=== PATIENT | male | born 1965 | race Caucasian/White ===

== ENCOUNTER 2017-05-11 19:32 | Emergency (ER) | payer OTHER ==
[~2017-05-11] VITALS: Ht 175.3 cm; Wt 80.0 kg
[2017-05-11] VITALS (7 sets, daily range): BP systolic 146–165; BP diastolic 91–100; PULSE 86–105; RESP 11–22; O2SAT 97–99
[~2017-05-11 19:32] MED LIST: LEVA15HF4 IH; PROZ20 PO
[2017-05-11 20:40] LABS: BASOPHILS % (AUTO) 0.2 % (0-3); EOSINOPHILS % (AUTO) 0.4 % (0-5); MONOCYTES % (AUTO) 7.8 % (4-12); Mean Corpuscular Hemoglobin 30.9 pg (27.0-35.0); Mean Corpuscular Volume 87.6 fL (81-100); NEUTROPHILS % (AUTO) 71.7 % (40-74); Platelet Count 454 bil/L (150-400)
--- NOTE | 2017-05-11 20:49 | ED.REPORT ---
HPI-General Illness Date of Service May 11, 2017 ED Provider: Buddy Le MD Patient is a 53 year old male presents to the ED following an episode of nonvertiginous dizziness that occurred earlier this afternoon. 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 Associated symptoms include dizziness, headache and grief/resolved confusion. The patient's daughter became concerned after he began to experience disorientation. Patient is currently complaining of fatigue and states he feels much better after receiving some IV fluids. He currently takes amitriptyline. He denies any associated chest pain, SOB, or numbness/tingling. Nursing Notes Stated Complaint: POSSIBLE HEAT STROKE Chief Complaint: General Complaint Nursing Notes Reviewed: Yes Allergies: Coded Allergies: Penicillins (Verified Allergy, Severe, 12/18/09) ondansetron (Verified Allergy, Severe, 12/18/09) azithromycin (Verified Allergy, Intermediate, Hives, 09/01/11) Scheduled FLUoxetine-Expunged Drug, Do not Renew! (Prozac-Expunged Drug, Do not Renew!) 20 Mg Cap 20 MG PO AM Scheduled PRN Levalbuterol (Xopenex HFA) 45 Mcg Puff 15 GM IH Q4 PRN PRN General Time Seen by MD: 20:48 Chief Complaint Dizziness Hx Obtained From: Patient Arrived By: Walk-in Sudden in Onset?: No Onset Occurred: 5 - 8 hours ago Symptom Duration: Since onset Location: : Head Quality: Aching Radiation: : Does not radiate Severity: Current: No pain currently Severity: Maximum: Mild Associated with: Reports: Headache, Weakness Pertinent Negative: Pt denies other symptoms Recent Healthcare: No recent doctor visit, No recent hospitalization Past Medical History Past Medical History None reported. Past Surgical History None reported. Smoking History Never Smoker Social History Alcohol Use: Denies alcohol use Drug Use: THC Other Social History: Good social support, Local resident Ambulatory Status Independent Review of Systems Full Review of Systems Constitutional: Denies: Chills, Fever Respiratory: Denies: Shortness of breath Cardiovascular: Denies: Chest pain Neurologic: Reports: Confusion, Dizziness, Headache, Lightheaded Complete sys rev & neg: except as marked. Physical Exam Vital Signs Vital Signs Date Time Temp Pulse Resp B/P Pulse Ox O2 Delivery O2 Flow Rate FiO2 05/11/17 23:24 91 20 157/94 97 Room Air 05/11/17 21:15 88 11 153/95 98 Room Air 05/11/17 21:00 87 13 153/91 99 Room Air 05/11/17 20:45 86 13 152/100 99 Room Air 05/11/17 20:30 101 17 165/98 99 Room Air 05/11/17 20:15 96 16 165/98 98 Room Air 05/11/17 19:42 36.7 105 22 146/96 97 Room Air Initial VS: Reviewed Neck: Supple, Non-tender, Full range of motion Extremities: Vascular intact, Neuro intact, No swelling, No tenderness Skin: Warm, Dry, No cyanosis Neurologic: Alert, Oriented, Nonfocal Psychiatric: Mood/affect normal, Behavior normal, Normal thought content General/Constitutional: Awake, Alert, No acute distress, Well appearing, Well developed Head / Eyes: Atraumatic, Normocephalic, PERRL ENT: Atraumatic, Airway patent, Pharynx NL Mouth: Positive: Mucous membranes dry Respiratory / Chest: Atraumatic, Breath sounds NL, Breath sounds = bilat, No respiratory distress Cardiovascular: Heart rate NL, Regular rhythm, Heart sounds NL, No gallop, No murmurs, No rubs Abdomen: Atraumatic, Soft, Non-tender Interpretation & Diagnostics Lab Results Interpretation Result Diagram: 05/11/17203405/11/172034 Test 05/11/17 20:35 05/11/17 20:49 05/11/17 21:48 White Blood Count 13.9th/mm3 (3.8-10.1) Red Blood Count 5.25mil/mm3 (4.40-5.80) Hemoglobin 16.2g/dL (13.8-17.2) Hematocrit 46.0% (41.0-50.0) Mean Corpuscular Volume 87.6fL (81-100) Mean Corpuscular Hemoglobin 30.9pg (27.0-35.0) Mean Corpuscular Hemoglobin Concent 35.2% (32.0-37.0) Red Cell Distribution Width 13.3% (12.3-15.4) Platelet Count 454bil/L (150-400) Neutrophils (%) (Auto) 71.7% (40-74) Lymphocytes (%) (Auto) 19.5% (14-46) Monocytes (%) (Auto) 7.8% (4-12) Eosinophils (%) (Auto) 0.4% (0-5) Basophils (%) (Auto) 0.2% (0-3) Sodium Level 136mEq/L (134-144) Potassium Level 5.1mEq/L (3.5-5.2) Chloride Level 97mEq/L (97-108) Carbon Dioxide Level 21mmol/L (18-29) Blood Urea Nitrogen 19mg/dL (6-24) Creatinine 1.13mg/dL (0.76-1.27) Estimat Glomerular Filtration Rate 72mL/min (>59) Glucose Level 113mg/dL (60-99) Calcium Level 11.5mg/dL (8.5-10.1) Magnesium Level 1.8mg/dL (1.6-2.6) Total Bilirubin 0.4mg/dL (0.0-1.2) Aspartate Amino Transf (AST/SGOT) 70U/L (0-50) Alanine Aminotransferase (ALT/SGPT) 62U/L (0-44) Alkaline Phosphatase 70U/L (25-150) Total Protein 8.7g/dL (6.4-8.4) Albumin 4.8g/dL (3.4-5.0) Lipase 22U/L (13-60) Hold Maher Top Tube Received (Received) Urine Color Yellow (YELLOW) Urine Appearance Clear (CLEAR,HAZY) Urine pH 6.0 (5.0-8.0) Urine Specific [place] 1.010 (1.003-1.035) Urine Protein 30mg/dL (NEG,TRACE) Urine Glucose (UA) Negativemg/dL (NEGATIVE) Urine Ketones Negativemg/dL (NEGATIVE) Urine Occult Blood Large (NEGATIVE) Urine Nitrite Negative (NEGATIVE) Urine Bilirubin Negative (NEGATIVE) Urine Urobilinogen Normalmg/dL (NORMAL) Urine Leukocyte Esterase Negative (NEGATIVE) Urine RBC 11-50/hpf (0-2) Urine WBC 0-5/hpf (0-5) Urine Epithelial Cells Occasional/hpf (NONE-MOD) Urine Crystals None seen (NONE SEEN) Urine Bacteria None/hpf (NONE-FEW) Urine Hyaline Casts None/lpf (NONE) Urine Granular Casts None seen (NONE SEEN) Urine Waxy Casts None seen (NONE SEEN) Urine Red Blood Cell Casts None seen (NONE SEEN) Urine White Blood Cell Casts None seen (NONE SEEN) Urine Mucus None seen (None Seen) Urine Trichomonas None seen (NONE SEEN) Urine Yeast None (NONE SEEN) Urinalysis Comment None Urine Culture Reflexed Not indicated ECG Interpretation ECG Interpretation: Sinus rhythm Rate 97 Normal axis Normal intervals No T wave abnormaliites No prior for comparison Time: 20:20 Interpreted by: ED physician Re-Eval/Medical Decision Med Decision/Clinical Course Patient is a 53 year old male presents to the ED following an episode of nonvertiginous dizziness that occurred earlier this afternoon. 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 Associated symptoms include dizziness, headache and grief/resolved confusion. The patient's daughter became concerned after he began to experience disorientation. Patient is currently complaining of fatigue and states he feels much better after receiving some IV fluids. Here in the emergency department the patient is afebrile stable vital signs and examination as above. He is not hyperthermic. He reports he feels much better and would now like to go home. EKG Sinus rhythm Rate 97 Normal axis Normal intervals No T wave abnormalities No prior for comparison LABS CBC leukocytosis = 14 CMP - good renal function No electrolyte abnormalities mild elevated transaminases UA normal except for large blood Overall presentation is most consistent with heat exhaustion. Patient does not have peaked stroke as he is not hyperthermic. Patient overall quite well- appearing, doing better now that he is in an air conditioned space and is received some IV fluids. I suspect he was somewhat dehydrated. No significant electrolyte abnormalities. No findings suggestive of acute infectious process and his mild leukocytosis is likely demarginalization. I feel the patient is appropriate for discharge.Prior to discharge follow-up and return precautions were reviewed in detail with the patient who verbalized understanding and agreement with the plan. The patient was discharged in stable condition. Of note, patient had incidental finding of hematuria. He is already aware of ongoing hematuria which was recently diagnosed by primary care physician. I have referred him to urology to work this up further. Time of Eval: 22:15 Patient Status: Condition improved Re-Evaluation/Progress Note: Patient is rechecked. He is informed of his results and diagnosis. All questions about the intended treatment plan are addressed. He understands and agrees with the plan to discharge with follow up. Counseled Regarding: Diagnosis, Lab results, Need for follow-up, When/why to return to ED Discharge & Departure Primary Impression: Heat exhaustion Encounter type: initial encounter Qualified Code: T67.5XXA - Heat exhaustion , unspecified, initial encounter Additional Impressions: Hematuria Dehydration Disposition: Home Discharge Condition All VS Reviewed: Yes Condition: Improved Patient Instructions: Heat Exhaustion (ED), Hematuria (ED) Additional Instructions: Thank you for seeking care at emergency room. It is difficult for us to make definitive diagnoses in the ED but we believe that you are experiencing heat exhaustion. Your lab results revealed blood in your urine. I recommend that you follow up with the referred urologist for further evaluation. Our primary goal today in the ED was to evaluate you for any life-threatening conditions. Your evaluation was reassuring. I recommend that you avoid prolonged periods of sun exposure. You should follow-up with your primary doctor in the next week. You should return to the ED immediately if you develop severe cramping, vomiting, shaking chills, lightheadedness, weakness or any other concerning signs or symptoms. Thank you for letting us partake in your care today. Referrals: Tisha Bliss MD (PCP) Mary Monzon MD Attestation Portions of this note were transcribed by Maya Juarez. I, Dr. Le personally performed the history, physical exam and medical decision-making; I reviewed and confirmed the accuracy of the information in the transcribed note. Signed by: Ji Cantrell, 05/11/17 2149. copies to: Tisha Bliss MD, Beck O MD May 11, 2017 20:49 MAYA JUAREZ May 11, 2017 21:14
[2017-05-11 21:01] LABS: Magnesium 1.8 mg/dL (1.6-2.6)
[2017-05-11] MEDS: MetoCLOpramide 5 mg/mL 2 mL Inj IVPUSH PRN ×2 (21:15→21:21)
[2017-05-11 22:19] LABS: APPEARANCE,URINE CLEAR (CLEAR,HAZY); COLOR,URINE YELLOW (YELLOW)
[2017-05-11 22:20] LABS: OCCULT BLOOD,URINE LARGE (NEGATIVE); UROBILINOGEN,URINE NORMAL (NORMAL)
== END 2017-05-11 23:25 | disposition home or self-care (01) ==
LOC: SED 19:32
DX: T67.5XXA Heat exhaustion, unspecified, initial encounter (principal); R31.9 Hematuria, unspecified; E86.0 Dehydration; X30.XXXA Exposure to excessive natural heat, initial encounter; Y93.89 Activity, other specified; Y99.0 Civilian activity done for income or pay; Y92.59 Other trade areas as the place of occurrence of the external cause; R07.9 Chest pain, unspecified; F12.10 Cannabis abuse, uncomplicated; Z88.0 Allergy status to penicillin; Z88.8 Allergy status to other drugs, medicaments and biological substances; Z88.1 Allergy status to other antibiotic agents
CPT/HCPCS: 36415; 80053; 81000; 83690; 83735; 85025; 93005; 96374; 99284; J2765